=== PATIENT | male | born 1950 | race Caucasian/White ===

== ENCOUNTER 2019-06-26 05:15 | Inpatient (IN) | payer MEDICARE ==
[~2019-06-26] VITALS: Ht 182.9 cm; Wt 98.3 kg
[2019-06-26] MEDS ORDERED: ASPIRIN 81 MG TABLET CHEW PO ONE (05:30)
[2019-06-26] MEDS ORDERED: ASPIRIN 81 MG TABLET CHEW ONE (05:38)
--- NOTE | 2019-06-26 05:41 | NUR ---
PT STATES HE MOVED HERE FROM [place] 2 DAYS AGO. PT PRESENTS WITH C/O CP THAT STARTED LAST NIGHT AND HAS CONTINUED THROUGHOUT THE NIGHT. PT STATES PAIN IS IN THE LEFT CHEST, NO RADIATION. HX OF CVA, CFH, 7 STENTS PLACED IN HEART. STATES HE IS SUPPOSED TO BE TAKING BLOOD THINNER, HTN MEDS, AND OTHERS (PT CANNOT REMEMBER NAMES OF MEDS) BUT HAS BEEN OFF OF ALL MEDS "FOR QUITE SOME TIME"
[2019-06-26 05:44] LABS: BASOPHILS # (AUTO) 0.03 x10^3/uL (0-0.1); BASOPHILS % (AUTO) 1 % (0-1); EOSINOPHILS # (AUTO) 0.19 x10^3/uL (0-0.4); EOSINOPHILS % (AUTO) 3 % (1-7); LYMPHOCYTES # (AUTO) 1.53 x10^3/uL (1-3.4); LYMPHOCYTES % (AUTO) 25 % (22-44); MD NO; MEAN CORPUSCULAR HEMOGLOBIN 32.1 pg (27.5-34.5); MEAN CORPUSCULAR HGB CONC 33.3 g/dL (33.2-36.2); MEAN CORPUSCULAR VOLUME 96.4 fL (81-97); MEAN PLATELET VOLUME 7.4 fL (7.4-10.4); MONOCYTES # (AUTO) 0.33 x10^3/uL (0.2-0.8); MONOCYTES % (AUTO) 5 % (2-9); NEUTROPHILS # (AUTO) 4.02 x10^3/uL (1.8-6.8); NEUTROPHILS % (AUTO) 66 % (42-75); PLATELET COUNT 239 x10^3/uL (130-400); RED BLOOD COUNT 4.12 x10^6/uL (4.38-5.82); RED CELL DISTRIBUTION WIDTH 14.3 % (9.4-14.8)
[2019-06-26 05:57] LABS: ALBUMIN 3.2 g/dL (3.4-5.0); ANION GAP 6 mmol/L (5-15); CALCIUM 8.2 mg/dL (8.5-10.1); CHLORIDE 110 mmol/L (98-107)
[2019-06-26 06:02] LABS: ALANINE AMINOTRANSFERASE 19 U/L (12-78); ALKALINE PHOSPHATASE 98 U/L (45-117); BILIRUBIN,TOTAL 0.4 mg/dL (0.2-1.0); CREATININE 1.12 mg/dL (0.7-1.3); TOTAL PROTEIN 6.7 g/dL (6.4-8.2); TROPONIN I < 0.015 ng/mL (0.000-0.045)
--- NOTE | 2019-06-26 06:55 | NUR ---
EX (JUSTINE BLANCAS) [phone]
--- NOTE | 2019-06-26 06:58 | NUR ---
REPORT GIVEN TO ADRIENNE DUBON
[2019-06-26] MEDS ORDERED: OMNIPAQUE 350 MG/ML, 100ML BOTTLE ONE (07:34)
[2019-06-26 08:23] VITALS: BP 167/81
[2019-06-26 09:26] VITALS: BP 164/89
[2019-06-26] MEDS ORDERED: DOCUSATE 100 MG CAPSULE PO PRN (09:30)
[2019-06-26] MEDS ORDERED: LABETALOL 5MG/ML, 20ML IVPush PRN (09:30)
[2019-06-26] MEDS ORDERED: ACETAMINOPHEN 325 MG TABLET PO PRN (09:30)
[2019-06-26] MEDS ORDERED: POLYETHYLENE GLYCOL 17 GM PACKET PO PRN (09:30)
[2019-06-26] MEDS ORDERED: BISACODYL 10 MG SUPP PR PRN (09:30)
[2019-06-26] MEDS: THIAMINE 100MG TABLET PO SCH (10:17)
[2019-06-26] MEDS: APIXABAN 5 MG TABLET PO SCH ×2 (10:17→21:00)
[2019-06-26] MEDS: FOLIC ACID 1 MG TABLET PO SCH (10:17)
[2019-06-26] MEDS: FUROSEMIDE 20 MG/2 ML IV SCH ×2 (10:17→17:08)
[2019-06-26 10:35] VITALS: BP 164/89
[2019-06-26 11:10] LABS: TROPONIN I < 0.015 ng/mL (0.000-0.045)
[2019-06-26 12:21] LABS: MICROSCOPIC AUTO
[2019-06-26 12:23] LABS: CULTURE INDICATED? NO
[2019-06-26] MEDS ORDERED: FLU VAC QS 19-20(4YR UP)CEL/PF 0.5 ML IM-VACC ONE (13:00)
[2019-06-26] MEDS ORDERED: FLU VACCINE PER PHARMACY IM ONE (13:00)
[2019-06-26 14:04] VITALS: BP_SYST 143; BP_SYST 153; BP_SYST 161; BP_DIAS 73; BP_DIAS 83
[2019-06-26 15:29] LABS: TROPONIN I < 0.015 ng/mL (0.000-0.045)
[2019-06-26 19:30] VITALS: BP 154/85
[2019-06-27 01:24] VITALS: BP 131/82
[2019-06-27 05:31] LABS: BASOPHILS # (AUTO) 0.03 x10^3/uL (0-0.1); BASOPHILS % (AUTO) 0 % (0-1); EOSINOPHILS # (AUTO) 0.18 x10^3/uL (0-0.4); EOSINOPHILS % (AUTO) 3 % (1-7); LYMPHOCYTES % (AUTO) 18 % (22-44); MD NO; MEAN CORPUSCULAR HEMOGLOBIN 32.3 pg (27.5-34.5); MEAN CORPUSCULAR HGB CONC 33.6 g/dL (33.2-36.2); MEAN CORPUSCULAR VOLUME 96.2 fL (81-97); MEAN PLATELET VOLUME 7.7 fL (7.4-10.4); MONOCYTES % (AUTO) 6 % (2-9); NEUTROPHILS # (AUTO) 5.24 x10^3/uL (1.8-6.8); NEUTROPHILS % (AUTO) 73 % (42-75); PLATELET COUNT 220 x10^3/uL (130-400); RED BLOOD COUNT 4.19 x10^6/uL (4.38-5.82)
[2019-06-27 05:34] LABS: CALCIUM 8.5 mg/dL (8.5-10.1); CHLORIDE 106 mmol/L (98-107)
[2019-06-27 05:49] LABS: ALANINE AMINOTRANSFERASE 17 U/L (12-78); ALBUMIN 3.2 g/dL (3.4-5.0); ALKALINE PHOSPHATASE 97 U/L (45-117); ANION GAP 4 mmol/L (5-15); BILIRUBIN,TOTAL 0.7 mg/dL (0.2-1.0); CREATININE 1.05 mg/dL (0.7-1.3); TOTAL PROTEIN 6.6 g/dL (6.4-8.2)
[2019-06-27 07:36] VITALS: BP 156/96
[2019-06-27] MEDS ORDERED: REGADENOSON 0.4 MG/5 ML SYRINGE ONE (07:49)
[2019-06-27] MEDS: FOLIC ACID 1 MG TABLET PO SCH (08:15)
[2019-06-27] MEDS: FUROSEMIDE 20 MG/2 ML IV SCH (08:15)
[2019-06-27] MEDS: THIAMINE 100MG TABLET PO SCH (08:15)
[2019-06-27] MEDS: APIXABAN 5 MG TABLET PO SCH ×2 (08:15→21:11)
[2019-06-27] MEDS ORDERED: LISINOPRIL 10 MG TABLET PO ONE (09:00)
[2019-06-27 09:09] LABS: CHOL/HDL RATIO 2.4; LDL/HDL RATIO 1.3 (0.5-3.0)
[2019-06-27 11:40] VITALS: BP 141/80
[2019-06-27] MEDS: SPIRONOLACTONE 25 MG TABLET PO SCH ×2 (11:41→21:11)
[2019-06-27 13:13] VITALS: BP 134/84
[2019-06-27] MEDS: CARVEDILOL 3.125 MG TABLET PO SCH (17:24)
[2019-06-27 19:06] VITALS: BP 123/68
[2019-06-27] MEDS ORDERED: ATORVASTATIN 40 MG TABLET PO SCH (21:00)
[2019-06-27 21:09] VITALS: BP 136/94
[2019-06-28 01:36] VITALS: BP 129/74
[2019-06-28 05:23] LABS: ANION GAP 5 mmol/L (5-15); CHLORIDE 105 mmol/L (98-107)
[2019-06-28 05:24] LABS: CREATININE 1.09 mg/dL (0.7-1.3)
[2019-06-28] MEDS ORDERED: CARVEDILOL 3.125 MG TABLET PO SCH (06:00)
[2019-06-28 06:07] VITALS: BP 154/63
[2019-06-28] MEDS: CARVEDILOL 3.125 MG TABLET PO SCH (06:09)
[2019-06-28] MEDS ORDERED: ATOR40TA78 PO (07:48)
[2019-06-28] MEDS ORDERED: FOLI-17 PO (07:48)
[2019-06-28] MEDS ORDERED: SPIR25TA PO (07:48)
[2019-06-28] MEDS ORDERED: FURO40TA6 PO (07:48)
[2019-06-28] MEDS ORDERED: THIA100T67 PO (07:48)
[2019-06-28] MEDS ORDERED: APIX5TAB PO (07:48)
[2019-06-28] MEDS ORDERED: CARV3.1212 PO (07:48)
[2019-06-28] MEDS ORDERED: FUROSEMIDE 40 MG TABLET PO SCH (09:00)
[2019-06-28 09:32] VITALS: BP 127/64
[2019-06-28] MEDS: SPIRONOLACTONE 25 MG TABLET PO SCH (10:20)
[2019-06-28] MEDS: APIXABAN 5 MG TABLET PO SCH (10:20)
[2019-06-28] MEDS: FOLIC ACID 1 MG TABLET PO SCH (10:20)
[2019-06-28] MEDS: THIAMINE 100MG TABLET PO SCH (10:20)
[2019-06-28] MEDS ORDERED: LISINOPRIL 5 MG TABLET PO SCH (11:00)
[2019-06-28] MEDS ORDERED: FLU VACC QS2019-20 36MOS UP/PF 0.5 ML IM-VACC ONE (12:30)
[2019-06-28] MEDS: FLU VACCINE PER PHARMACY IM ONE (12:30)
[2019-06-28] MEDS ORDERED: LISI5TAB7 PO (13:15)
== END 2019-06-28 15:04 | disposition home or self-care (01) | DRG 292 ==
LOC: ED 06:28 → EDIP 06:51 → 5SO 08:05
PROVIDERS: ADMIT Internal Medicine; ATTEND Internal Medicine
DX: I11.0 Hypertensive heart disease with heart failure (principal); D68.69 Other thrombophilia; I50.43 Acute on chronic combined systolic (congestive) and diastolic (congestive) heart failure; I42.9 Cardiomyopathy, unspecified; E78.5 Hyperlipidemia, unspecified; I25.10 Atherosclerotic heart disease of native coronary artery without angina pectoris; I48.91 Unspecified atrial fibrillation; Z79.01 Long term (current) use of anticoagulants; Z82.49 Family history of ischemic heart disease and other diseases of the circulatory system; Z87.891 Personal history of nicotine dependence; Z91.19 Patient's noncompliance with other medical treatment and regimen; Z95.5 Presence of coronary angioplasty implant and graft; I69.398 Other sequelae of cerebral infarction; I69.320 Aphasia following cerebral infarction; I71.2 Thoracic aortic aneurysm, without rupture
CPT/HCPCS: 36415; 71045; 71275; 78452; 80048; 80053; 80061; 81001; 82607; 83735; 83880; 84100; 84443; 84484; 85025; 90686; 93005; 93017; 93306; 99285; G0378; J2785; Q9967; A9502; J1940